=== PATIENT | female | born 2000 | race African-American/Black ===

== ENCOUNTER 2023-10-14 10:56 | Emergency (ER) | payer OTHER ==
[2023-10-14 11:17] VITALS: BP 133/83; PULSE 81; RESP 18; TEMP 98.4; BMI 22.8
[2023-10-14] MEDS ORDERED: ACETAMINOPHEN 325 MG TABLET (FP) PO ONE (11:35)
[2023-10-14] MEDS ORDERED: ACETAMINOPHEN 325 MG TABLET (FP) ONE (11:51)
== END 2023-10-14 14:36 | disposition home or self-care (01) ==
LOC: JER 10:56
DX: M25.562 Pain in left knee (principal); M79.652 Pain in left thigh; V09.20XA Pedestrian injured in traffic accident involving unspecified motor vehicles, initial encounter; Y93.01 Activity, walking, marching and hiking; Y92.481 Parking lot as the place of occurrence of the external cause
CPT/HCPCS: 73552-TC-LT-FY; 73564-TC-LT-FY; 73590-TC-LT-FY; 84703; 93005; 93010; 99285-25